=== PATIENT | female | born 1960 | race Two or more races ===

== ENCOUNTER → 2021-03-26 | Outpatient (CLI) | payer OTHER ==
[2015-10-02 09:35] VITALS: BP 146/90
[~2021-03-26] MED LIST: LOSA25TA54 PO; OMEP40CA45 PO
--- NOTE | 2021-03-26 12:06 | KCIC ---
Examination: MRI of the left ankle without contrast History: Achilles tendinitis COMPARISON: None TECHNIQUE: Multiplanar, multisequence MR imaging of the left ankle without contrast FINDINGS: There is mild increased T2 signal identified in the distal Achilles tendon at its attachment to the c alcaneus. The attachment of the plantar fascia to the calcaneus grossly appears intact. The anterior extensor compartment tendons, flexor tendons, peroneal tendons grossly appears intact.. The anterior, posterior tibiofibular, talofibular ligaments appear intact. The deltoid ligament appea rs intact. Fat is present within sinus tarsi. The alignment of the tarsal bones grossly appears unremarkable. IMPRESSION: 1. Mild increased T2 signal identified in the distal Achilles tendon at its attachment to the calcane us likely tendinosis. Electronically signed by: Paras Moss MD (03/26/2021 12:04 PM) [id number]
== END ==
LOC: KCIC MRI 09:11
PROVIDERS: ATTEND Physician Assistant
DX: M76.62 Achilles tendinitis, left leg (principal)
CPT/HCPCS: 73721

== ENCOUNTER → 2021-12-03 | Outpatient (CLI) | payer OTHER ==
[2015-10-02 09:35] VITALS: BP 146/90
[~2021-12-03] MED LIST changes: -OMEP40CA45 PO; +OMEP40CA7 PO
--- NOTE | 2021-12-03 13:39 | KCIC ---
EXAM: Lumbar spine MRI without contrast. HISTORY: Lumbosacral neuritis. TECHNIQUE: Multiplanar, multisequence magnetic resonance imaging of the lumbar spine was performed wi thout contrast. COMPARISON: None. FINDINGS: There is mild lumbar scoliosis. There is 2 mm grade 1 anterolisthesis of L3 on L4, L4 and L 5 and L5 on S1. There is multilevel endplate remodeling, primarily at L5-S1. There is associated disc space narrowing at this level. There are few endplate Schmorl's nodes. There is no acute or subacute fracture or suspicious osseous lesion. There are small Tarlov cysts within the sacral canal, the lar gest of which measures 1.8 cm. The conus terminates at L1. At T12-L1, there is a minimal disc bulge and endplate remodeling. There is no stenosis. At L1-L2, there is a shallow posterior central to right paracentral disc protrusion and slight inferi or extrusion. There is mild right facet arthropathy. There is no stenosis. At L2-L3, there is a shallow right paracentral disc protrusion and slight inferior extrusion. There i s mild right facet arthropathy. There is no stenosis. At L3-L4, there is moderate right and mild left facet arthropathy. There is no stenosis. At L4-L5, there is a mild disc bulge and endplate remodeling. There is mild right facet arthropathy. There is no stenosis. At L5-S1, there are bilateral foraminal to extra foraminal disc protrusions and osteophyte complexes superimposed on a disc bulge and endplate osteophytosis. There is minimal bilateral foraminal stenosi s with abutment or near abutment of the exiting L5 nerve roots. IMPRESSION: Multilevel degenerative change involving the lumbar spine, described in detail above. Thi s is associated with minimal bilateral foraminal stenosis and abutment or near abutment the exiting L 5 nerve roots at L5-S1. Electronically signed by: Sangita Cabrera MD (12/03/2021 1:37 PM) [id number]
== END ==
LOC: KCIC MRI 12:22
PROVIDERS: ATTEND Physician Assistant
DX: M51.27 Other intervertebral disc displacement, lumbosacral region (principal); M48.07 Spinal stenosis, lumbosacral region; M41.86 Other forms of scoliosis, lumbar region; M25.78 Osteophyte, vertebrae
CPT/HCPCS: 72148

== ENCOUNTER → 2021-12-28 | Outpatient (CLI) | payer OTHER ==
[2015-10-02 09:35] VITALS: BP 146/90
[~2021-12-28] MED LIST changes: +CETI10TA16 PO; +MULT-245 PO
--- NOTE | 2021-12-28 09:20 | PDOC1 ---
INITIAL PAIN CONSULT DATE OF SERVICE: DOS: DATE: 12/28/21 TIME: 09:13 CHIEF COMPLAINT: Chief Complaint: Low back and left lower extremity pain HISTORY OF PRESENT ILLNESS: 61-year-old female presents with history of pain in the low back and left lower extremity for "many years" patient reports that she missed a step when she was walking on some stairs in July 2021 and since that time the pain is exacerbated significantly in the left lower extremity patient reports is rating the low back posterior gluteus posterior thigh posterior calf on the left side patient reports its constant sharp change during the day worse with walking standing especially bending or leaning forward and repetitive motions better with sitting but sitting for more than 30 minutes exacerbates the pain as well across the low back and into the left leg posteriorly patient reports her left knee is also very painful and she has had some treatment with orthopedics which has been helpful with this in the past as well. Patient reports pain across the low back is cramping aching radiating shooting in the left lower extremity patient reports no loss of motor function with significant fatigability of left leg with activity standing walking changing positions awakens her from sleep least 2-3 times a night generally does not affect her bowel bladder control does affect her ability to walk at times but she not use any assistive devices to ambulate. Patient has had physical therapy completed October 2021 which was helpful but only temporarily also is using a TENS unit which she has currently and brought it with her to her visit today and is using it appropriately patient reports it does decrease the pain but only minimally and she is trying to use this when she is working as she is on her feet for all of her working day bobluh t reports he is doing exercise daily that she learned from physical therapy also has had chiropractic treatment which is ongoing all these which are helpful but not decreasing the pain significantly. Patient been taking Tylenol as she is allergic to ibuprofen and it helps but only by about 20% at best. Patient have an MRI scan lumbar spine which we reviewed with her today showing multilevel degenerative change with minimal bilateral foraminal stenosis and abutment of near abutment of the exiting L5 nerve roots at L5-S1 with shallow posterior central right paracentral disc fusion L1-2 shallow right paracentral disc protrusion at L2-3. PAST MEDICAL HISTORY: PMH: Hypertension, childbirth PREVIOUS SURGERIES: Past Surgical Hx: Bladder surgery 2014, hysterectomy, right arm fracture with ORIF CURRENT MEDICATIONS: Current Meds: Active Scripts Medications Dose Route/Sig Max Daily Dose Days Date Category Cetirizine Hcl 10 Mg Tablet 1 Tab PO DAILY 12/28/21 Reported Multi Vitamin Daily (Multivitamin) 1 Each Tablet 1 Tab PO DAILY 30 12/28/21 Reported Omeprazole 40 Mg Capsule.dr 1 Cap PO DAILY 10/02/15 Reported Losartan Potassium (Losartan Potassium) 25 Mg Tablet 25 Mg PO DAILY 10/02/15 Reported ALLERGIES; Allergies: Coded Allergies: latex (Verified Allergy, Intermediate, Itching, 10/02/15) RASH FAMILY HISTORY: Family Hx: Diabetes, hypertension, heart disease SOCIAL HISTORY: Social Hx: Patient is under alcohol does not smoke does not use any illegal illicit or recreational drugs is single has 1 child living with her at home lives locally in [facility], 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 REVIEW OF SYSTEMS: ROS: Positive for those items mentioned in history of present illness, all systems are reviewed, otherwise negative ,and are complete full and well-documented on patient's chart. PHYSICAL EXAM: VS: Blood pressure is 143/88 pulse 63 respirations 18 temperature 98.7 F height is 5 feet 9 inches weight is 196 pounds. PE: PHYSICAL EXAMINATION: GENERAL: The patient is awake, alert, oriented, appropriate, very pleasant in demeanor HEENT: Shows normocephalic, atraumatic. Extraocular movements are intact and symmetrical. Oral cavity: Mucous membranes moist and pink. Dentition is intact. NECK: Shows anterior throat supple without palpable lymphadenopathy noted. Swallow reflex symmetrical. CHEST: Shows normal on inspection. Breath sounds are clear bilaterally, distant but no rales rhonchi or wheezes auscultated. HEART: Shows S1, S2 clear. No murmurs auscultated. ABDOMEN: Soft, nontender, nondistended. No palpable organomegaly is noted. No rebound or guarding demonstrated. BACK: Shows spine grossly in the midline. Normal-appearing cervical lordotic curvature. There is slightly increased thoracic kyphosis, some mild flattening of the lumbar lordotic curvature. Lumbar paraspinous muscles show symmetrical on inspection, on palpation shows some moderate tenderness diffusely throughout the upper, middle and lower distribution of the paraspinous muscles bilaterally and also into the lower thoracic paraspinous musculature, firm and tender, but without specific trigger points, without radiation of pain. The patient has good rotational motion of the lumbar spine, both laterally as well as extension and flexion without significant difficulty. No tenderness over the spinous proc esses, sacrum or sacroiliac regions. EXTREMITIES: Lower extremities show deep tendon reflexes 2+ in the patellar and tendo calcaneus tendons. Motor exam is 5 on a scale of 5 with right dorsiflexion, extension, quadriceps and hamstring flexion and 4/5 on the left. Peripheral pulses are 1+ posterior tibial. No peripheral edema is noted bilaterally. Lower extremities are warm and dry to touch, equal in color and appearance. Straight leg raise noted to be positive on the left at approximate 40 degrees straight leg raise decreased with knee flexion, right side is negative. Gaenslen's and Eleazar's maneuvers are negative bilaterally. The patient is able to stand, stand on her toes without significant difficulty or loss of balance, walks with a slight favoring gait does appear to favor the left lower extremity mildly but not use any assistive device such as canes or walkers to ambulate. SKIN: Shows warm and dry, good turgor. No edema. No sores, rashes or bruising throughout. IMPRESSION: Impression: 61-year-old female with long history of many years of low back pain and left lower extremity pain worse over the past 5 months consistent with lumbar radiculopathy following an L5-S1 dermatomal distribution. MRI scan lumbar spine as noted Hypertension Plan: Options were discussed with patient occluding conservative measures continued physical therapies and interventional techniques. As patient is done physical therapy is currently seeing chiropractic and using TENS unit as well as doing exercises on her own, she would like to pursue interventional techniques. We discussed a lumbar epidural steroid injection using descriptions as well as anatomical models to describe the procedure. Patient wait for preauthorization with her insurance provider, once obtained we will have patient return for translaminar approach L5-S1 level lumbar epidural steroid injection with fluoroscopic guidance. In the meantime, patient continue with stretching strength exercise, TENS unit application, oral analgesics as currently. LIONEL FLOWERS MD Dec 28, 2021 09:20
== END | disposition home or self-care (01) ==
LOC: PNCL 08:27
PROVIDERS: ATTEND Anesthesiology
DX: M54.50 Low back pain, unspecified (principal); M79.605 Pain in left leg; I10 Essential (primary) hypertension; E78.00 Pure hypercholesterolemia, unspecified; K21.9 Gastro-esophageal reflux disease without esophagitis; Z90.710 Acquired absence of both cervix and uterus; Z98.890 Other specified postprocedural states; Z79.899 Other long term (current) drug therapy; Z88.8 Allergy status to other drugs, medicaments and biological substances
CPT/HCPCS: G0463

== ENCOUNTER → 2022-01-10 | Outpatient (CLI) | payer OTHER ==
[2015-10-02 09:35] VITALS: BP 146/90
[~2022-01-10] MED LIST changes: +IOHEXOL 180 MG/ML 10 ML VIAL. ONE
--- NOTE | 2022-01-10 14:59 | PDOC ---
Progress Note - Pain Clinic Date of Service: DOS: DATE: 01/10/22 TIME: 14:56 Diagnosis: Dx: Lumbar radiculopathy with lumbar degenerative disc disease History or Present Illness: HPI: 61-year-old female returns for follow-up status post evaluation and reports pain in the low back and into the right greater left lower extremity and into the great toe as well which is been bothering her she is recently traveled to [place] and back to see some family reports that the pain was getting much more significant with extended walking standing and riding in vehicles patient reports a 10 on scale 10 is worse over the past week 5-6 on average 5 its least is a 6 today she reports aching sharp dull tight shooting radiating and into the right great toe as well as the posterior gluteus posterior thigh calf lower leg. Patient reports no loss of motor function no bowel or bladder incontinence but significant pain with walking standing change positions better with laying down generally does not awaken her from sleep at night. Patient reports no bowel or bladder incontinence. Physical Exam: VS: Blood pressure is 165/98 pulse 61 respirations 18 temperature 98.7 F height 5 feet 9 inches weight is 205 pounds. PE: PHYSICAL EXAMINATION: GENERAL: The patient is awake, alert, oriented, appropriate, very pleasant in demeanor HEENT: Shows normocephalic, atraumatic. Extraocular movements are intact and symmetrical. Oral cavity: Mucous membranes moist and pink. Dentition is intact. NECK: Shows anterior throat supple without palpable lymphadenopathy noted. Swallow reflex symmetrical. CHEST: Shows normal on inspection. Breath sounds are clear bilaterally, no rales or rhonchi. HEART: Shows S1, S2 clear. No murmurs auscultated. ABDOMEN: Soft, nontender, nondistended. No palpable organomegaly is noted. BACK: Shows spine grossly in the midline. Normal-appearing cervical lordotic curvature. There is slightly increased thoracic kyphosis, some mild flattening of the lumbar lordotic curvature. Lumbar paraspinous muscles show symmetrical on inspection, on palpation shows some moderate tenderness diffusely throughout the upper, middle and lower distribution of the paraspinous muscles without specific trigger points, without radiation of pain. The patient has good rotational motion of the lumbar spine, both laterally as well as extension and flexion without significant difficulty. No tenderness over the spinous processes, sacrum or sacroiliac regions. EXTREMITIES: Lower extremities show deep tendon reflexes 2+ in the patellar and tendo calcaneus tendons. Motor exam is 4 on a scale of 5 with right dorsiflexion, extension, quadriceps and hamstring flexion and 5/5 on the left. Peripheral pulses are 1+ posterior tibial. No peripheral edema is noted bilaterally. Lower extremities are warm and dry. SKIN: Shows warm and dry, good turgor. No edema. No sores, rashes or bruising throughout. Procedure: Procedure: Options were discussed with the patient. Patient chart reviews her current medication regimen updated current review of systems updated today as well. We will proceed with a lumbar epidural steroid injection today with fluoroscopic guidance. Risks were discussed including but not limited to: Bleeding, infection, possibility of epidural hematoma and subsequent neurological compromise, dural puncture, headaches, spinal cord and/or nerve damage, side effects of steroid medication, and poor results regarding pain control. Patient understands and wished to proceed. Patient will return to the clinic in approximately 2 weeks for follow-up, was counseled as to return appointment, activity level, and side effects to be aware of. Medication Injected: Med Injected: Procedure is lumbar epidural steroid injection under local anesthetic using sterile prep and drape at the L5-S1 level using C-arm fluoroscopic guidance in both AP and lateral views medications injected is 20 g dexamethasone +10mL preservative-free normal saline and 2 mL contrast- condition at discharge is stable patient tolerated procedure well had no complications. Condition at Discharge: Condition at Discharge: Condition at discharge stable, the patient tolerated the procedure well and had no complications. LIONEL FLOWERS MD Jan 10, 2022 14:59
--- NOTE | 2022-01-10 15:00 | PDOC4 ---
Procedure Note: ICD 10 Code: ICD 10 Code: M54.17 M51.87 Procedure Note: Patient was consented for lumbar epidural steroid injection fluoroscopic guidance. Risks were discussed including but not limited to: Bleeding, infection, possibility of epidural hematoma and subsequent neurological compromise, dural puncture, headaches, spinal cord and/or nerve damage, side effects of steroid medication, and poor results regarding pain control. Patient understands and wished to proceed. Procedure is lumbar epidural steroid injection under local anesthetic using sterile prep and drape at the L5-S1 level using C-arm fluoroscopic guidance in both AP and lateral views medications injected is 20 g dexamethasone +10mL preservative-free normal saline and 2 mL contrast- condition at discharge is stable patient tolerated procedure well had no complications. LIONEL FLOWERS MD Jan 10, 2022 15:00
== END | disposition home or self-care (01) ==
LOC: PNCL 14:18
PROVIDERS: ATTEND Anesthesiology
DX: M51.16 Intervertebral disc disorders with radiculopathy, lumbar region (principal); I10 Essential (primary) hypertension; E78.00 Pure hypercholesterolemia, unspecified; K21.9 Gastro-esophageal reflux disease without esophagitis; Z90.710 Acquired absence of both cervix and uterus; Z98.890 Other specified postprocedural states; Z79.899 Other long term (current) drug therapy; Z91.040 Latex allergy status
CPT/HCPCS: 62323; Q9965

== ENCOUNTER → 2022-01-24 | Outpatient (CLI) | payer OTHER ==
[2015-10-02 09:35] VITALS: BP 146/90
[~2022-01-24] MED LIST changes: -IOHEXOL 180 MG/ML 10 ML VIAL. ONE
--- NOTE | 2022-01-24 08:30 | PDOC ---
Progress Note - Pain Clinic Date of Service: DOS: DATE: 01/24/22 TIME: 08:25 Diagnosis: Dx: Lumbar radiculopathy with lumbar degenerative disc disease History or Present Illness: HPI: 61-year-old female returns for follow-up status post lumbar epidural steroid injection x1. Patient reports about 75% improvement with the first injection now down about 60% provement still significantly improved in the low back and right lower extremity patient reports still having some difficulty with the pain in her right great toe with pain radiating in the right posterior gluteus posterior thigh posterior calf into the toe on the right side and the sole of the foot patient reports her low back feels "heavy" but is much better than it was less radiation of the lower extremities today but still significant radicular pain in the right side patient reports a 10 on scale 10 is worse over the past week 8 on average 5 to [place] is an 8 today patient reported sharp and tingling in the back shooting tight dull alternating in the back as well as cramping and stabbing radiating can be constant with extended standing or walking but better with sitting or laying down generally does not awaken her from sleep at this time. Patient reports she can increase her distance walking doing household activities greater ease and comfort doing work activities as well and traveling with greater ease and comfort as well patient also taking l ess Tylenol than she had previously and is noticed that she has not needed as much because the pain is improved. Patient continues with stretching strength exercises as well as heat applications to the low back. Patient reports no loss of motor function no bowel or bladder incontinence. Physical Exam: VS: Blood pressure is 148/89 pulse 61 respirations are 18 temperature is 98.2 F weight is 200 pounds height is 5 feet 9 inches PE: PHYSICAL EXAMINATION: GENERAL: The patient is awake, alert, oriented, appropriate, very pleasant in demeanor HEENT: Shows normocephalic, atraumatic. Extraocular movements are intact and symmetrical. Oral cavity: Mucous membranes moist and pink. Dentition is intact. NECK: Shows anterior throat supple without palpable lymphadenopathy noted. Swallow reflex symmetrical. CHEST: Shows normal on inspection. Breath sounds are clear bilaterally. HEART: Shows S1, S2 clear. No murmurs auscultated. ABDOMEN: Soft, nontender, nondistended. No palpable organomegaly is noted. BACK: Shows spine grossly in the midline. Normal-appearing cervical lordotic curvature. There is mildly increased thoracic kyphosis, some minor flattening of the lumbar lordotic curvature. Lumbar paraspinous muscles show symmetrical on inspection, on palpation shows some moderate tenderness diffusely throughout the upper, middle and lower distribution of the paraspinous muscles without specific trigger points, without radiation of pain. The patient has good rotational motion of the lumbar spine, both laterally as well as extension and flexion without significant difficulty. EXTREMITIES: Lower extremities show deep tendon reflexes 2+ in the patellar and tendo calcaneus tendons. Motor exam is 4 on a scale of 5 with right dorsiflexion, extension, quadriceps and hamstring flexion and 5/5 on the left. Peripheral pulses are 1 posterior tibial. No peripheral edema is noted bilaterally. Lower extremities are warm and dry to touch, equal in color and appearance. SKIN: Shows warm and dry, good turgor. No edema. No sores, rashes or bruising throughout. Procedure: Procedure: Options were discussed with the patient. Patient chart was reviewed as her current medication regimen updated current review of systems updated today as well. We will preauthorize patient for a second lumbar epidural steroid ejection, as she did very well with the first injection with pain returning now in the low back and right lower extremity and L5-S1 dermatomal distribution. Patient will continue with stretching strength exercises as well as oral analgesics as necessary, once approved we will have her return for a translaminar approach L5-S1 lumbar epidural steroid injection with fluoroscopic guidance. Medication Injected: Med Injected: None Condition at Discharge: Condition at Discharge: Condition at discharge is stable. LIONEL FLOWERS MD Jan 24, 2022 08:30
== END | disposition home or self-care (01) ==
LOC: PNCL 08:06
PROVIDERS: ATTEND Anesthesiology
DX: M51.16 Intervertebral disc disorders with radiculopathy, lumbar region (principal); I10 Essential (primary) hypertension; E78.00 Pure hypercholesterolemia, unspecified; K21.9 Gastro-esophageal reflux disease without esophagitis; Z90.710 Acquired absence of both cervix and uterus; Z98.890 Other specified postprocedural states; Z79.899 Other long term (current) drug therapy; Z91.040 Latex allergy status
CPT/HCPCS: 99212; G0463

== ENCOUNTER → 2022-02-11 | Outpatient (CLI) | payer OTHER ==
[2015-10-02 09:35] VITALS: BP 146/90
[~2022-02-11] MED LIST changes: +DEXAMETHASONE PRES.FREE 10 MG/ML VIAL. ONE; +IOHEXOL 180 MG/ML 10 ML VIAL. ONE
--- NOTE | 2022-02-11 13:19 | PDOC ---
Progress Note - Pain Clinic Date of Service: DOS: DATE: 02/11/22 TIME: 13:15 Diagnosis: Dx: Lumbar radiculopathy with lumbar degenerative disc disease History or Present Illness: HPI: 62-year-old female returns for follow-up status post lumbar epidural steroid injection x1 with approximately 90% improvement. Patient reports she still has some pain in the low back but now is new is in the right foot on the lateral aspect of the foot is is bothering her significantly however the back is doing much better patient reports her foot and lateral toes on the right side only are significantly tender and painful with walking and standing as well as with sit ting patient reports she notices when she is driving using her right foot as well patient reports is a 3 on scale 10 at its worst and least is a 2 and average is a 3. Patient reports aching and dull but cramping stabbing and tight in the right foot. Patient reports no loss of motor function no bowel or bladder incontinence patient reports initially she is doing much better with d istance walking doing household activities work activities able to lift up and is able to sleep on her stomach where is more comfortable for her where with her pain in her back increase she was unable to do this. Patient reports is not awaken her from sleep anymore and she is very pleased with this as well. Patient reports no bowel bladder incontinence. Physical Exam: VS: Blood pressure is 148/91 pulse 75 respirations 16 temperature 97.9 F height is 5 foot 9 inches weight is 203 pounds. PE: PHYSICAL EXAMINATION: GENERAL: The patient is awake, alert, oriented, appropriate, very pleasant in demeanor HEENT: Shows normocephalic, atraumatic. Extraocular movements are intact and symmetrical. Oral cavity: Mucous membranes moist and pink. Dentition is intact. NECK: Shows anterior throat supple without palpable lymphadenopathy noted. Swallow reflex symmetrical. CHEST: Shows normal on inspection. Breath sounds are clear bilaterally. HEART: Shows S1, S2 clear. No murmurs auscultated. ABDOMEN: Soft, nontender, nondistended. No palpable organomegaly is noted. BACK: Shows spine grossly in the midline. Normal-appearing cervical lordotic curvature. There is mildly increased thoracic kyphosis, some mild flattening of the lumbar lordotic curvature. Lumbar paraspinous muscles show symmetrical on inspection, on palpation shows some moderate tenderness diffusely throughout the upper, middle and lower distribution of the paraspinous muscles without specific trigger points, without radiation of pain. The patient has good rotational motion of the lumbar spine, both laterally as well as extension and flexion without significant difficulty. EXTREMITIES: Lower extremities show deep tendon reflexes 2+ in the patellar and tendo calcaneus tendons. Motor exam is 4 on a scale of 5 with right dorsiflexion, extension, quadriceps and hamstring flexion and 5/5 on the left. Peripheral pulses are 1+ posterior tibial. No peripheral edema is noted bilaterally. Lower extremities are warm and dry to touch, equal in color and appearance. Patient's feet show symmetrical on inspection with palpation no obv ious abnormalities on the right lateral aspect of the foot or toes full extension flexion of the toes as well as dorsiflexion and extension at the ankle bilaterally. SKIN: Shows warm and dry, good turgor. No edema. No sores, rashes or bruising throughout. Procedure: Procedure: Options discussed with the patient. Patient's old chart was reviewed as her current medication regimen updated current review of systems updated today as well. We will proceed with a second lumbar epidural steroid injection today with fluoroscopic guidance. Risks were discussed including but not limited to: Bleeding, infection, possibility of epidural hematoma and subsequent neurological compromise, dural puncture, headaches, spinal cord and/or nerve damage, side effects of steroid medication, and poor results regarding pain control. Patient understands and wished to proceed. Patient return to clinic in approximately 2 weeks for follow-up, was counseled as to return appointment, activity level, and side effect to be aware of. Medication Injected: Med Injected: Procedure is lumbar epidural steroid injection under local anesthetic using sterile prep and drape at the L5-S1 level using C-arm fluoroscopic guidance in both AP and lateral views medications injected is 20 mg dexamethasone +10mL preservative-free normal saline and 2 mL contrast- condition at discharge is stable patient tolerated procedure well had no complications. Condition at Discharge: Condition at Discharge: Condition at discharge is stable, patient Yaquelin the procedure well and had no complications. LIONEL FLOWERS MD Feb 11, 2022 13:19
--- NOTE | 2022-02-11 13:20 | PDOC4 ---
Procedure Note: ICD 10 Code: ICD 10 Code: M54.17 M51.7 Procedure Note: Patient was consented for lumbar epidural steroid injection with fluoroscopic guidance. Risks were discussed including but not limited to: Bleeding, infection, possibility of epidural hematoma and subsequent neurological compromise, dural puncture, headaches, spinal cord and/or nerve damage, side effects of steroid medication, and poor results regarding pain control. Patient understands and wished to proceed. Procedure is lumbar epidural steroid injection under local anesthetic using sterile prep and drape at the L5-S1 level using C-arm fluoroscopic guidance in both AP and lateral views medications injected is 20 mg dexamethasone +10mL preservative-free normal saline and 2 mL contrast- condition at discharge is stable patient tolerated procedure well had no complications. LIONEL FLOWERS MD Feb 11, 2022 13:20
== END | disposition home or self-care (01) ==
LOC: PNCL 11:14
PROVIDERS: ATTEND Anesthesiology
DX: M51.16 Intervertebral disc disorders with radiculopathy, lumbar region (principal); I10 Essential (primary) hypertension; E78.00 Pure hypercholesterolemia, unspecified; K21.9 Gastro-esophageal reflux disease without esophagitis; Z90.710 Acquired absence of both cervix and uterus; Z98.890 Other specified postprocedural states; Z79.899 Other long term (current) drug therapy; Z91.040 Latex allergy status
CPT/HCPCS: 62323; J1100; Q9965

== ENCOUNTER → 2022-03-03 | Outpatient (CLI) | payer OTHER ==
[2015-10-02 09:35] VITALS: BP 146/90
[~2022-03-03] MED LIST changes: -DEXAMETHASONE PRES.FREE 10 MG/ML VIAL. ONE; -IOHEXOL 180 MG/ML 10 ML VIAL. ONE
--- NOTE | 2022-03-03 14:19 | PDOC ---
Progress Note - Pain Clinic Date of Service: DOS: DATE: 03/03/22 TIME: 14:17 Diagnosis: Dx: Lumbar radiculopathy lumbar degenerative disc disease History or Present Illness: HPI: 62-year-old female returns follow-up status post lumbar epidural steroid injection x2. Patient reports 1% improvement for the past 4 weeks and still the pain is not returned in the low back and the right lower extremity patient reports increased activity with greater ease and comfort tried with greater ease walking greater distances sleeping better at night doing household activities work activities and riding in a car for longer period of time her right leg and no longer has any numbness or tingling still has a minor amount of fatigue but no significant disability or pain. Patient reports her pain is a 0 on a scale 10 at worst least and average is 0 today patient is very pleased with her progress has no new bowel or bladder incontinence or complaints. Physical Exam: VS: Blood pressure is 150/85 pulse 74 respirations 18 temperature 98.4 F weight is 200 pounds. PE: PHYSICAL EXAMINATION: GENERAL: The patient is awake, alert, oriented, appropriate, very pleasant in demeanor HEENT: Shows normocephalic, atraumatic. Extraocular movements are intact and symmetrical. Oral cavity: Mucous membranes moist and pink. Dentition is intact. NECK: Shows anterior throat supple without palpable lymphadenopathy noted. Swallow reflex symmetrical. CHEST: Shows normal on inspection. Breath sounds are clear bilaterally. HEART: Shows S1, S2 clear. No murmurs auscultated. ABDOMEN: Soft, nontender, nondistended. No palpable organomegaly is noted. BACK: Shows spine grossly in the midline. Normal-appearing cervical lordotic curvature. There is slightly increased thoracic kyphosis, some minor flattening of the lumbar lordotic curvature. Lumbar paraspinous muscles show symmetrical on inspection, on palpation shows some moderate tenderness diffusely throughout the upper, middle and lower distribution of the paraspinous muscles, but without specific trigger points, without radiation of pain. The patient has good rotational motion of the lumbar spine, both laterally as well as extension and flexion without significant difficulty. No tenderness over the spinous proce sses, sacrum or sacroiliac regions. EXTREMITIES: Lower extremities show deep tendon reflexes 2 to in the patellar and tendo calcaneus tendons. Motor exam is 4 on a scale of 5 with right dorsiflexion, extension, quadriceps and hamstring flexion and 5/5 on the left. Peripheral pulses are 1+ posterior tibial. No peripheral edema is noted bilaterally. Lower extremities are warm and dry to touch, equal in color and appearance. SKIN: Shows warm and dry, good turgor. No edema. No sores, rashes or bruising throughout. Procedure: Procedure: Options were discussed with the patient. Patient chart reviews her current medication regimen updated current review of systems updated today as well. We will hold any further injections at this time as patient is doing quite a bit better. Patient was encouraged increase activity as tolerated maintain stretching exercises as well as oral analgesics as necessary. Patient, at this time we will follow-up on as-needed basis. Medication Injected: Med Injected: None Condition at Discharge: Condition at Discharge: Condition at discharge is stable. LIONEL FLOWERS MD Mar 03, 2022 14:19
== END | disposition home or self-care (01) ==
LOC: PNCL 14:16
PROVIDERS: ATTEND Anesthesiology
DX: M51.16 Intervertebral disc disorders with radiculopathy, lumbar region (principal); I10 Essential (primary) hypertension; E78.00 Pure hypercholesterolemia, unspecified; K21.9 Gastro-esophageal reflux disease without esophagitis; Z90.710 Acquired absence of both cervix and uterus; Z98.890 Other specified postprocedural states; Z79.899 Other long term (current) drug therapy; Z91.040 Latex allergy status
CPT/HCPCS: 99212; G0463